=== PATIENT | female | born 1940 | race Caucasian/White ===

== ENCOUNTER → 2018-02-27 11:34 | Outpatient (CLI) | payer MEDICARE, BC, SELFPAY ==
--- NOTE | 2018-02-27 | DI.MG.S_ITS ---
BILATERAL DIGITAL SCREENING MAMMOGRAM 3D/2D WITH CAD: 02/27/2018 CLINICAL: Routine screening. Comparison is made to exams dated: 08/26/2016 mammogram, 07/11/2015 mammogram, and 07/08/2014 mammogram - [facility]. The tissue of both breasts is extremely dense, which lowers the sensitivity of mammography. Current study was also evaluated with a Computer Aided Detection (CAD) system. There are benign calcifications in both breasts. No significant masses, calcifications, or other findings are seen in either breast. There has been no significant interval change. IMPRESSION: BENIGN There is no mammographic evidence of malignancy. A 1 year screening mammogram is recommended. This exam was interpreted at Station ID: [id number]. NOTE: For mammograms, a report in lay terms will be sent to the patient. Approximately 15% of breast malignancies will not be visualized mammographically. In the management of a palpable breast mass, a negative mammogram must not discourage biopsy of a clinically suspicious lesion. Electronically Signed By: Marques whiting/pro:02/28/2018 08:28:03 letter sent: Normal Exam ACR BI-RADS Category 2: Benign Finding(s) 3342F
== END ==
PROVIDERS: PCP Internal Medicine; Visit Provider Internal Medicine
DX: Z12.31 Encounter for screening mammogram for malignant neoplasm of breast (principal)
CPT/HCPCS: 77063; 77067

== ENCOUNTER → 2019-01-01 08:40 | Outpatient (CLI) | payer MEDICARE, BC, SELFPAY ==
[2019-01-01 10:44] LABS: Blood Urea Nitrogen 22 mg/dL (7-17); Calcium 9.2 mg/dL (8.4-10.2); Carbon Dioxide 27 mmol/L (22-32); Chloride 104 mmol/L (98-107); Cholesterol 152 mg/dL (140-199); Estimated Glomerular Filt Rate 53.8 mL/min (>60); Glucose 88 mg/dL (80-110); HDL Cholesterol 66 mg/dL (40-60); HEMOLYSIS < 15 (0-50); LDL Cholesterol Calculated 73 mg/dL (<100); Potassium 4.4 mmol/L (3.4-5.1); Sodium 140 mmol/L (137-145); Triglycerides 64 mg/dL (35-150)
== END ==
PROVIDERS: PCP Family Medicine; Visit Provider Family Medicine
DX: E03.9 Hypothyroidism, unspecified (principal); E78.2 Mixed hyperlipidemia
CPT/HCPCS: 36415; 80048; 80061; 84443

== ENCOUNTER → 2019-04-03 15:43 | Outpatient (CLI) | payer MEDICARE, BC, SELFPAY ==
--- NOTE | 2019-04-03 | DI.MG.S_ITS ---
BILATERAL DIGITAL SCREENING MAMMOGRAM 3D/2D WITH CAD: 04/03/2019 CLINICAL: Routine screening. Comparison is made to exams dated: 02/27/2018 mammogram - [facility], 08/26/2016 mammogram, 07/11/2015 mammogram, 07/08/2014 mammogram - [facility], and 01/10/2012 mammogram - [facility]. The tissue of both breasts is heterogeneously dense. This may lower the sensitivity of mammography. Current study was also evaluated with a Computer Aided Detection (CAD) system. No significant masses, calcifications, or other findings are seen in either breast. There has been no significant interval change. IMPRESSION: NEGATIVE There is no mammographic evidence of malignancy. A 1 year screening mammogram is recommended. This exam was interpreted at Station ID: [id number]. NOTE: For mammograms, a report in lay terms will be sent to the patient. Approximately 15% of breast malignancies will not be visualized mammographically. In the management of a palpable breast mass, a negative mammogram must not discourage biopsy of a clinically suspicious lesion. Electronically Signed By: Terrell painting/pro:04/03/2019 19:18:31 letter sent: Normal Exam ACR BI-RADS Category 1: Negative 3341F
== END ==
PROVIDERS: PCP Family Medicine; Visit Provider Family Medicine
DX: Z12.31 Encounter for screening mammogram for malignant neoplasm of breast (principal)
CPT/HCPCS: 77063; 77067

== ENCOUNTER → 2019-05-15 10:37 | Outpatient (CLI) | payer MEDICARE, BC, SELFPAY ==
[2019-05-15 12:04] LABS: BUN Creatinine Ratio 23.3 (6-22); Blood Urea Nitrogen 21 mg/dL (7-17); Calcium 9.3 mg/dL (8.4-10.2); Carbon Dioxide 26 mmol/L (22-32); Chloride 104 mmol/L (98-107); Cholesterol 196 mg/dL (140-199); Estimated Glomerular Filt Rate > 60.0 mL/min (>60); Glucose 89 mg/dL (80-110); HDL Cholesterol 61 mg/dL (40-60); HEMOLYSIS < 15 (0-50); LDL Cholesterol Calculated 115 mg/dL (<100); Potassium 4.4 mmol/L (3.4-5.1); Sodium 139 mmol/L (137-145); Triglycerides 102 mg/dL (35-150)
== END ==
PROVIDERS: PCP Family Medicine; Visit Provider Family Medicine
DX: E78.2 Mixed hyperlipidemia (principal)
CPT/HCPCS: 36415; 80048; 80061

== ENCOUNTER → 2019-10-19 13:55 | Outpatient (CLI) | payer MEDICARE, BC, SELFPAY ==
--- NOTE | 2019-10-19 13:59 | DI.US.S_ITS ---
PROCEDURE: US ABDOMEN COMPLETE INDICATIONS: PAIN TECHNIQUE: Real-time scanning was performed of the abdominal and retroperitoneal organs, with image documentation. COMPARISON: [facility], CT, ABDOMEN/PELVIS WITH CONTRAST, 04/15/2009, 9:12. FINDINGS: Liver: Liver is normal in size and homogeneous in echotexture. Gallbladder: The gallbladder is sludge-filled, with several tiny nonobstructing stones. The gallbladder wall is not thickened, measuring 3 mm or less. No specific pericholecystic fluid is seen. The sonographic Langford sign is negative. Biliary ducts: Intrahepatic bile ducts are non-dilated. Extrahepatic bile duct caliber measures 4 mm. Normal is 6-7 mm or less in diameter, or 10 mm or less post-cholecystectomy. Pancreas: Visualized portions of the pancreas are sonographically normal. Spleen: Spleen is normal in size. Several hyperechoic masses are seen within the spleen. Kidneys: Kidneys are normal in size and echotexture. Right kidney measures 10.4 cm long; left kidney measures 9.3 cm long. No hydronephrosis or nephrolithiasis. No solid masses. The renal cortex measures within normal limits for thickness. Several simple appearing bilateral renal cysts are seen. The largest is seen on the left superiorly that measures up to 2.2 cm. Aorta: Visualized aorta is normal in caliber at less than 3 cm. Iliacs: Proximal common iliac arteries are normal in caliber at less than 2.5 cm. IVC: Intrahepatic inferior vena cava is patent. Miscellaneous: No free abdominal fluid. IMPRESSION: Sludge and tiny gallstones are seen within the gallbladder, without additional sonographic signs of cholecystitis. Numerous echogenic masses can be seen within the spleen, with the largest measuring up to 1.5 cm. Differential diagnosis includes splenic hemangiomas. Less likely would be metastatic disease. As clinically appropriate, please consider a followup abdominal CT, performed with IV contrast. Several simple appearing bilateral renal cysts are seen. Dictated by: Dontae Krishnan M.D. on 10/19/2019 at 15:21 Approved by: Dontae Krishnan M.D. on 10/19/2019 at 15:23
[2019-10-19 14:26] LABS: Add Manual Diff / Slide Review NO; Basophils Absolute Auto 0 /uL (0-100); Basophils Percent Auto 0.3 % (0-2); Eosinophils Absolute Auto 0 /uL (0-450); Eosinophils Percent Auto 0.5 % (2-4); Lymphocytes Absolute Auto 1500 /uL (1100-4500); Lymphocytes Percent Auto 14.9 % (25-40); Mean Corpuscular HGB Conc 35.2 % (30-36); Mean Corpuscular Hemoglobin 32.4 PG (26-34); Mean Corpuscular Volume 92.2 fL (80-100); Monocytes Absolute Auto 700 /uL (0-900); Monocytes Percent Auto 6.7 % (3-14); Neutrophils Absolute Auto 7600 /uL (1500-7000); Neutrophils Percent Auto 77.6 % (50-75); Platelet Count 164 X10^3/uL (150-400); Red Blood Cell Count 4.01 X10^6/uL (4.0-5.2); Red Cell Distribution Width 13.4 % (11.6-14.8); White Blood Cell Count 9.8 X10^3/uL (4.5-11.0)
[2019-10-19 14:41] LABS: Alanine Aminotransferase 14 IU/L (<35); Albumin 4.3 g/dL (3.5-5.0); Albumin Globulin Ratio 1.3 (1.0-2.8); Alkaline Phosphatase 92 U/L (38-126); Amylase 53 U/L (30-110); Aspartate Aminotransferase 22 IU/L (14-36); Bilirubin Total 1.1 mg/dL (0.2-1.3); Blood Urea Nitrogen 15 mg/dL (7-17); Calcium 9.3 mg/dL (8.4-10.2); Carbon Dioxide 27 mmol/L (22-32); Chloride 103 mmol/L (98-107); Cholesterol 172 mg/dL (140-199); Estimated Glomerular Filt Rate 53.6 mL/min (>60); Globulin 3.3 g/dL (1.7-4.1); Glucose 102 mg/dL (80-110); HDL Cholesterol 54 mg/dL (40-60); HEMOLYSIS < 15 (0-50); LDL Cholesterol Calculated 103 mg/dL (<100); Lipase 46 U/L (23-300); Sodium 140 mmol/L (137-145); Total Protein 7.6 g/dL (6.3-8.2); Triglycerides 74 mg/dL (35-150)
== END ==
PROVIDERS: PCP Family Medicine; Referring Provider Family Medicine; Visit Provider Family Medicine
DX: R10.9 Unspecified abdominal pain (principal); E78.5 Hyperlipidemia, unspecified; K82.8 Other specified diseases of gallbladder; N28.1 Cyst of kidney, acquired; R16.1 Splenomegaly, not elsewhere classified
CPT/HCPCS: 36415; 76700; 80053; 80061; 82150; 83690; 85025

== ENCOUNTER → 2019-10-25 12:04 | Outpatient (CLI) | payer MEDICARE, BC, SELFPAY ==
--- NOTE | 2019-10-25 13:04 | DI.CT.S_ITS ---
PROCEDURE: CT ABDOMEN PELVIS W CON INDICATIONS: Adnormal gallballder US, showed sluge/stones TECHNIQUE: After the administration of oral and intravenous contrast, 5 mm thick sections acquired from the diaphragms to the symphysis. 5 mm thick coronal and sagittal reformats were performed. For radiation dose reduction, the following was used: automated exposure control, adjustment of mA and/or kV according to patient size. COMPARISON: [facility], CT, ABDOMEN/PELVIS WITH CONTRAST, 04/15/2009, 9:12. [facility], US, US ABDOMEN COMPLETE, 10/19/2019, 14:41. FINDINGS: Image quality: Excellent. ABDOMEN: Lung bases: Lung bases are clear. Small calcified granuloma is noted in the right middle lobe. Heart size is normal. Solid organs: A calcific density in the liver is probably an old granuloma. Liver is normal in size and enhancement. Gallbladder is normal. Biliary system is non-dilated. Pancreas enhances normally. Spleen contains multiple hypoenhancing nodules, many were visualized on 04/15/2009. A 1.1 x 1.8 cm right adrenal nodule is noted, unchanged in size since 04/15/2009. Kidneys are normal in size and enhancement, without hydronephrosis. There are simple appearing renal cysts bilaterally. No renal stones. Peritoneum and bowel: Stomach, small bowel, and colon loops are normal in caliber and wall thickness. There are numerous colonic diverticula the sigmoid colon. The sigmoid colon appears mildly thickened. No free fluid or air. Nodes and vessels: No retroperitoneal or mesenteric adenopathy. Aorta and inferior vena cava are normal in caliber. Miscellaneous: No ventral hernias. PELVIS: Genitourinary: Bladder wall thickness is normal. Uterus and ovaries are unremarkable. No free fluid in pelvis. Miscellaneous: No inguinal hernias or adenopathy. Bones: No suspicious bony lesions. No vertebral body compression fractures. Mild scoliosis. Degenerative changes noted in thoracic and lumbar spine. IMPRESSION: 1. Multiple hypoenhancing nodules in spleen; many were visualized on 04/15/2009. On the comparison ultrasound, these nodules are hyperechoic suggesting small hemangiomas. Less likely diagnostic considerations include diagnoses include sarcoidosis and metastatic disease. 2. A 1.1 x 1.8 cm right adrenal nodule, stable since 04/15/2009, likely a benign adrenal adenoma. 3. Diverticulosis. There is mild thickening of the sigmoid colon suggesting mild diverticulitis. Recommend clinical correlation. 4. Dictated by: Yas Neff M.D. on 10/25/2019 at 15:57 Approved by: Yas Neff M.D. on 10/25/2019 at 18:19
== END ==
PROVIDERS: PCP Family Medicine; Referring Provider Family Medicine; Visit Provider Family Medicine
DX: R93.5 Abnormal findings on diagnostic imaging of other abdominal regions, including retroperitoneum (principal); D73.89 Other diseases of spleen; E27.9 Disorder of adrenal gland, unspecified; N28.1 Cyst of kidney, acquired; K57.30 Diverticulosis of large intestine without perforation or abscess without bleeding
CPT/HCPCS: 74177

== ENCOUNTER → 2020-04-04 12:14 | Outpatient (CLI) | payer MEDICARE, BC, SELFPAY ==
--- NOTE | 2020-04-04 12:18 | DI.RAD.S_ITS ---
PROCEDURE: XR HAND LT MIN 3V INDICATIONS: Pain TECHNIQUE: 3 views of the hand(s) acquired. COMPARISON: None. FINDINGS: Bones: No fractures or dislocations. Carpal bones are normally aligned. No suspicious bony lesions. Possible old fracture involving the 5th middle phalanx distally, versus degenerative change at that site Soft tissues: No suspicious soft tissue calcifications. IMPRESSION: No trauma found. 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 Dictated by: Iban Chowdhury M.D. on 04/04/2020 at 14:17 Approved by: Iban Chowdhury M.D. on 04/04/2020 at 14:18
[2020-04-04 13:39] LABS: Thyroid Stimulating Hormone 1.58 uIU/mL (0.47-4.68)
== END ==
PROVIDERS: PCP Family Medicine; Referring Provider Family Medicine; Visit Provider Family Medicine
DX: M79.642 Pain in left hand (principal); M19.042 Primary osteoarthritis, left hand; E03.9 Hypothyroidism, unspecified
CPT/HCPCS: 36415; 73130; 84443

== ENCOUNTER → 2020-05-29 11:07 | Outpatient (CLI) | payer MEDICARE, BC, SELFPAY ==
--- NOTE | 2020-05-29 11:10 | DI.MG.S_ITS ---
BILATERAL DIGITAL SCREENING MAMMOGRAM 3D/2D WITH CAD: 05/29/2020 CLINICAL: Routine screening. Comparison is made to exams dated: 04/03/2019 mammogram, 02/27/2018 mammogram - [facility], and 08/26/2016 mammogram - [facility]. The tissue of both breasts is heterogeneously dense. This may lower the sensitivity of mammography. Current study was also evaluated with a Computer Aided Detection (CAD) system. There are grouped fine punctate calcifications in the left breast at 6 o'clock posterior depth. There also is irregular equal density architectural distortion with an indistinct margin in the left breast at 12 o'clock middle depth. No other significant masses, calcifications, or other findings are seen in either breast. IMPRESSION: INCOMPLETE: NEEDS ADDITIONAL IMAGING EVALUATION The grouped fine punctate calcifications in the left breast at 6 o'clock posterior depth are indeterminate. Mediolateral, spot magnification, and additional views are recommended. The irregular equal density architectural distortion in the left breast at 12 o'clock middle depth is indeterminate. Mediolateral and spot compression views as well as additional views with possible ultrasound are recommended. This exam was interpreted at Station ID: [id number]. NOTE: For mammograms, a report in lay terms will be sent to the patient. Approximately 15% of breast malignancies will not be visualized mammographically. In the management of a palpable breast mass, a negative mammogram must not discourage biopsy of a clinically suspicious lesion. Electronically Signed By: Marques whiting/pro:05/29/2020 17:28:05 letter sent: Additional Imaging Needed ACR BI-RADS Category 0: Incomplete 3340F
== END ==
PROVIDERS: PCP Family Medicine; Referring Provider Family Medicine; Visit Provider Family Medicine
DX: Z12.31 Encounter for screening mammogram for malignant neoplasm of breast (principal)
CPT/HCPCS: 77063; 77067

== ENCOUNTER → 2020-06-26 08:39 | Outpatient (CLI) | payer MEDICARE, BC, SELFPAY ==
--- NOTE | 2020-06-26 08:41 | DI.MG.S_ITS ---
UNILATERAL LEFT DIGITAL DIAGNOSTIC MAMMOGRAM 3D/2D WITH ADDITIONAL VIEWS: 06/26/2020 CLINICAL: Additional evaluation requested from prior study. Comparison is made to exams dated: 04/03/2019 mammogram, 02/27/2018 mammogram - [facility], and 08/26/2016 mammogram - [facility]. The tissue of left breast is heterogeneously dense. This may lower the sensitivity of mammography. There is a new irregular equal density architectural distortion with an indistinct margin in the left breast at 12 o'clock posterior depth. There also are grouped fine punctate calcifications in the left breast at 6 o'clock posterior depth. These are increased in number. No other significant masses or calcifications are seen in the breast. IMPRESSION: INCOMPLETE: NEEDS ADDITIONAL IMAGING EVALUATION The new irregular equal density architectural distortion in the left breast at 12 o'clock posterior depth is indeterminate. An ultrasound is recommended. The grouped fine punctate calcifications in the left breast at 6 o'clock posterior depth are at a low suspicion for malignancy. A stereotactic biopsy is recommended. This exam was interpreted at Station ID: [id number]. NOTE: For mammograms, a report in lay terms will be sent to the patient. Approximately 15% of breast malignancies will not be visualized mammographically. In the management of a palpable breast mass, a negative mammogram must not discourage biopsy of a clinically suspicious lesion. Electronically Signed By: Marques whiting/pro:06/26/2020 09:55:57 ACR BI-RADS Category 0: Incomplete 3340F
--- NOTE | 2020-06-26 08:41 | DI.US.S_ITS ---
LIMITED ULTRASOUND OF LEFT BREAST AND AXILLA: 06/26/2020 CLINICAL: Patient returns today to evaluate an architectural distortion in the left breast. Patient returns today to evaluate asymmetry in left breast. Comparison is made to exams dated: 06/26/2020 mammogram, 05/29/2020 mammogram, and 04/03/2019 mammogram - [facility]. Color flow and real-time ultrasound of the left breast 11-12 o'clock, and axilla regions were performed on the areas of interest. There is a 0.8 cm x 0.7 cm irregular mass with an indistinct margin in the left breast at 12 o'clock middle depth 4 cm from the nipple. This irregular mass is hypoechoic with posterior acoustic shadowing. This likely correlates with architectural distortion on mammography. Color flow imaging demonstrates that there is no increase in vascularity. There also is a 0.6 cm x 0.4 cm x 0.5 cm oval mass with a circumscribed margin in the left breast at 12 o'clock anterior depth. This oval mass is hypoechoic with a well-defined boundary and internal echoes. No significant abnormalities were seen sonographically in the left axilla. IMPRESSION: HIGHLY SUGGESTIVE OF MALIGNANCY The 0.8 cm x 0.7 cm irregular mass in the left breast at 12 o'clock middle depth is highly suggestive of malignancy. An ultrasound guided biopsy is recommended. The 0.6 cm x 0.4 cm x 0.5 cm oval mass in the left breast at 12 o'clock anterior depth is probably benign. Recommend followup in 6 months to demonstrate stability. Stereotactic guided biopsy is recommended of calcifications seen on mammography. The findings were discussed with the patient at the conclusion of the study by Dr. Solomon. This exam was interpreted at Station ID: [id number]. Electronically Signed By: Marques Ward M.D. ddp/:06/26/2020 12:45:52 letter sent: Biopsy Required Ultrasound BI-RADS: 5 Highly suggestive of malignancy
== END ==
PROVIDERS: PCP Family Medicine; Referring Provider Family Medicine; Visit Provider Family Medicine
DX: R92.8 Other abnormal and inconclusive findings on diagnostic imaging of breast (principal); R92.1 Mammographic calcification found on diagnostic imaging of breast; N63.25 Unspecified lump in the left breast, overlapping quadrants
CPT/HCPCS: 76642; 77065; G0279

== ENCOUNTER → 2020-10-17 11:57 | Outpatient (CLI) | payer MEDICARE, BC, SELFPAY ==
[2020-10-17 13:31] LABS: Alanine Aminotransferase 20 IU/L (<35); Albumin 4.1 g/dL (3.5-5.0); Albumin Globulin Ratio 1.5 (1.0-2.8); Alkaline Phosphatase 74 U/L (38-126); Aspartate Aminotransferase 27 IU/L (14-36); BUN Creatinine Ratio 20.5 (6-22); Bilirubin Total 0.5 mg/dL (0.2-1.3); Blood Urea Nitrogen 18 mg/dL (7-17); Calcium 9.5 mg/dL (8.4-10.2); Carbon Dioxide 28 mmol/L (22-32); Chloride 106 mmol/L (98-107); Estimated Glomerular Filt Rate > 60.0 mL/min (>60); Globulin 2.7 g/dL (1.7-4.1); Glucose 81 mg/dL (80-110); HEMOLYSIS < 15 (0-50); Potassium 4.4 mmol/L (3.4-5.1); Sodium 139 mmol/L (137-145); Total Protein 6.8 g/dL (6.3-8.2)
[2020-10-17 13:46] LABS: Free T4, Direct Thyroxine 1.28 ng/dL (0.78-2.19)
[2020-10-17 14:00] LABS: Thyroid Stimulating Hormone 0.468 uIU/mL (0.47-4.68)
== END ==
PROVIDERS: PCP Family Medicine; Referring Provider Family Medicine; Visit Provider Family Medicine
DX: E03.9 Hypothyroidism, unspecified (principal); I10 Essential (primary) hypertension
CPT/HCPCS: 36415; 80053; 84439; 84443

== ENCOUNTER → 2021-04-14 10:10 | Outpatient (CLI) | payer MEDICARE, BC, SELFPAY ==
[2021-04-14 12:22] LABS: Free T4, Direct Thyroxine 1.07 ng/dL (0.78-2.19)
[2021-04-14 12:36] LABS: Thyroid Stimulating Hormone 0.998 uIU/mL (0.47-4.68)
== END ==
PROVIDERS: PCP Family Medicine; Referring Provider Family Medicine; Visit Provider Family Medicine
DX: E03.9 Hypothyroidism, unspecified (principal); I10 Essential (primary) hypertension
CPT/HCPCS: 36415; 84439; 84443

== ENCOUNTER → 2021-06-24 15:44 | Outpatient (CLI) | payer MEDICARE, BC, SELFPAY ==
--- NOTE | 2021-06-24 15:46 | DI.RAD.S_ITS ---
4PROCEDURE: XR FOOT RT MIN 3V INDICATIONS: Progressive right midfoot pain TECHNIQUE: 3 views of the foot were acquired. COMPARISON: [facility], , FOOT 3V RIGHT, 05/07/2009, 11:38. FINDINGS: Bones: No fractures or dislocations. There is moderate to severe degeneration at the 1st metatarsophalangeal joint which appears progressed compared to the prior study. There is also a moderate hallux valgus which appears increased compared to the prior study. There is mild degeneration of the interphalangeal joints. No suspicious bony lesions. Soft tissues: No suspicious soft tissue calcifications. IMPRESSION: 1. 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 Dictated by: Marques Ward M.D. on 06/24/2021 at 17:47 Approved by: Marques Ward M.D. on 06/24/2021 at 17:49
== END ==
PROVIDERS: PCP Family Medicine; Referring Provider Family Medicine; Visit Provider Family Medicine
DX: M21.611 Bunion of right foot (principal); M19.071 Primary osteoarthritis, right ankle and foot; M20.11 Hallux valgus (acquired), right foot; I49.3 Ventricular premature depolarization
CPT/HCPCS: 73630; 93005

== ENCOUNTER → 2021-10-12 13:57 | Outpatient (CLI) | payer MEDICARE, BC, SELFPAY ==
--- NOTE | 2021-10-12 14:01 | DI.MG.S_ITS ---
BILATERAL DIGITAL DIAGNOSTIC MAMMOGRAM 3D/2D SHORT-TERM FOLLOW-UP: 10/12/2021 CLINICAL: Short term follow up of the left breast, due for bilateral imaging. Comparison is made to exams dated: 01/06/2021 mammogram, 07/08/2020 mammogram - [facility], 06/26/2020 [facility], 07/08/2020 stereotactic biopsy - [facility], 05/29/2020 [facility], and 01/06/2021 ultrasound - [facility]. The tissue of both breasts is heterogeneously dense. This may lower the sensitivity of mammography. There is irregular equal density architectural distortion with an indistinct margin in the left breast at 12 o'clock middle depth. This is less prominent. There is a biopsy clip associated with the architectural distortion. There also are grouped fine punctate calcifications in the left breast central to the nipple posterior depth. These are not significantly changed. No other significant masses, calcifications, or other findings are seen in either breast. IMPRESSION: INCOMPLETE: NEEDS ADDITIONAL IMAGING EVALUATION The irregular equal density architectural distortion in the left breast at 12 o'clock middle depth is indeterminate. An ultrasound is recommended. The grouped fine punctate calcifications in the left breast central to the nipple posterior depth are probably benign. A follow-up mammogram in 6 months is recommended. This exam was interpreted at Station ID: [id number]. NOTE: For mammograms, a report in lay terms will be sent to the patient. Approximately 15% of breast malignancies will not be visualized mammographically. In the management of a palpable breast mass, a negative mammogram must not discourage biopsy of a clinically suspicious lesion. Electronically Signed By: Miki bingham/pro:10/12/2021 15:56:18 ACR BI-RADS Category 0: Incomplete 3340F
--- NOTE | 2021-10-12 14:01 | DI.US.S_ITS ---
LIMITED ULTRASOUND OF LEFT BREAST: 10/12/2021 CLINICAL: Patient returns today to evaluate two focal asymmetries in the left breast. Comparison is made to exams dated: 10/12/2021 mammogram - [facility], 01/06/2021 ultrasound, 01/06/2021 mammogram, 07/08/2020 ultrasound biopsy, 07/08/2020 stereotactic biopsy - [facility], and 06/26/2020 ultrasound - [facility]. Color flow ultrasound of the left breast 12 o'clock region was performed. Baez scale images of the real-time examination were reviewed. There is a stable 0.5 cm x 0.4 cm x 0.3 cm oval mass with a circumscribed margin in the left breast at 12 o'clock anterior depth 2 cm from the nipple. This oval mass is hypoechoic. Color flow imaging demonstrates that there is no vascularity present. There also is an irregular mass with an indistinct margin in the left breast at 12 o'clock middle depth 4 cm from the nipple. This abnormality is less prominent. There is an associated biopsy clip. IMPRESSION: PROBABLY BENIGN The stable 0.5 cm x 0.4 cm x 0.3 cm oval mass in the left breast at 12 o'clock anterior depth resembles a lymph node and is probably benign. A follow-up ultrasound in 6 months is recommended. The irregular mass in the left breast at 12 o'clock middle depth is probably benign. Follow-up mammogram and ultrasound in 6 months is recommended. A follow-up left mammogram and an ultrasound in 6 months is recommended to demonstrate stability. This exam was interpreted at Station ID: [id number]. Electronically Signed By: Miki bingham/pro:10/12/2021 15:58:37 letter sent: Followup Recommended Ultrasound BI-RADS: 3 Probably benign
== END ==
PROVIDERS: PCP Family Medicine; Referring Provider Family Medicine; Visit Provider Family Medicine
DX: R92.1 Mammographic calcification found on diagnostic imaging of breast (principal); N63.25 Unspecified lump in the left breast, overlapping quadrants
CPT/HCPCS: 76642; 77066; G0279

== ENCOUNTER → 2021-12-31 08:42 | Outpatient (CLI) | payer MEDICARE, BC, SELFPAY ==
[2021-12-31 09:16] LABS: Add Manual Diff / Slide Review NO; Basophils Absolute Auto 0 /uL (0-100); Basophils Percent Auto 0.5 % (0-2); Eosinophils Absolute Auto 200 /uL (0-450); Eosinophils Percent Auto 4.1 % (2-4); Hematocrit 38.8 % (36-46); Hemoglobin 13.6 g/dL (12.0-16.0); Lymphocytes Absolute Auto 1300 /uL (1100-4500); Lymphocytes Percent Auto 27.5 % (25-40); Mean Corpuscular HGB Conc 35.1 % (30-36); Mean Corpuscular Hemoglobin 31.8 PG (26-34); Mean Corpuscular Volume 90.6 fL (80-100); Monocytes Absolute Auto 500 /uL (0-900); Neutrophils Absolute Auto 2700 /uL (1500-7000); Neutrophils Percent Auto 57.9 % (50-75); Platelet Count 158 X10^3/uL (150-400); Red Blood Cell Count 4.28 X10^6/uL (4.0-5.2); Red Cell Distribution Width 13.6 % (11.6-14.8); White Blood Cell Count 4.6 X10^3/uL (4.5-11.0)
[2021-12-31 10:35] LABS: Alanine Aminotransferase 17 IU/L (<35); Albumin 4.2 g/dL (3.5-5.0); Albumin Globulin Ratio 1.6 (1.0-2.8); Alkaline Phosphatase 64 U/L (38-126); Aspartate Aminotransferase 28 IU/L (14-36); BUN Creatinine Ratio 22.4 (6-22); Bilirubin Total 0.8 mg/dL (0.2-1.3); Blood Urea Nitrogen 22 mg/dL (7-17); Calcium 8.9 mg/dL (8.4-10.2); Carbon Dioxide 28 mmol/L (22-32); Chloride 104 mmol/L (98-107); Cholesterol 219 mg/dL (140-199); Estimated Glomerular Filt Rate 58 mL/min (>60); Globulin 2.6 g/dL (1.7-4.1); Glucose 89 mg/dL (80-110); HDL Cholesterol 69 mg/dL (40-60); HEMOLYSIS < 15 (0-50); LDL Cholesterol Calculated 132 mg/dL (<100); Magnesium 1.9 mg/dL (1.6-2.3); Potassium 4.2 mmol/L (3.4-5.1); Sodium 139 mmol/L (137-145); Total Protein 6.8 g/dL (6.3-8.2); Triglycerides 91 mg/dL (35-150)
[2021-12-31 11:05] LABS: Thyroid Stimulating Hormone 1.81 uIU/mL (0.47-4.68)
== END ==
PROVIDERS: PCP Family Medicine; Referring Provider Internal Medicine Cardiovascular Disease; Visit Provider Internal Medicine Cardiovascular Disease
DX: I10 Essential (primary) hypertension (principal); I49.9 Cardiac arrhythmia, unspecified
CPT/HCPCS: 36415; 80053; 80061; 83735; 84443; 85025

== ENCOUNTER → 2022-06-04 09:31 | Outpatient (CLI) | payer MEDICARE, BC, SELFPAY ==
[2022-06-04 12:18] LABS: Add Manual Diff / Slide Review NO; Basophils Absolute Auto 0 /uL (0-100); Basophils Percent Auto 0.7 % (0-2); Eosinophils Absolute Auto 100 /uL (0-450); Eosinophils Percent Auto 3.2 % (2-4); Hematocrit 36.8 % (36-46); Hemoglobin 13.1 g/dL (12.0-16.0); Lymphocytes Absolute Auto 1500 /uL (1100-4500); Lymphocytes Percent Auto 32.6 % (25-40); Mean Corpuscular HGB Conc 35.4 % (30-36); Mean Corpuscular Hemoglobin 32.7 PG (26-34); Mean Corpuscular Volume 92.3 fL (80-100); Monocytes Absolute Auto 400 /uL (0-900); Monocytes Percent Auto 9.5 % (3-14); Neutrophils Absolute Auto 2500 /uL (1500-7000); Platelet Count 158 X10^3/uL (150-400); Red Blood Cell Count 3.99 X10^6/uL (4.0-5.2); Red Cell Distribution Width 13.4 % (11.6-14.8); White Blood Cell Count 4.7 X10^3/uL (4.5-11.0)
[2022-06-04 12:46] LABS: Alanine Aminotransferase 12 IU/L (<35); Albumin 3.8 g/dL (3.5-5.0); Albumin Globulin Ratio 1.4 (1.0-2.8); Alkaline Phosphatase 61 U/L (38-126); Aspartate Aminotransferase 23 IU/L (14-36); BUN Creatinine Ratio 16.1 (6-22); Bilirubin Total 0.7 mg/dL (0.2-1.3); Blood Urea Nitrogen 14 mg/dL (7-17); Carbon Dioxide 28 mmol/L (22-32); Chloride 106 mmol/L (98-107); Cholesterol 143 mg/dL (140-199); Estimated Glomerular Filt Rate > 60 mL/min (>60); Globulin 2.7 g/dL (1.7-4.1); Glucose 85 mg/dL (80-110); HDL Cholesterol 59 mg/dL (40-60); HEMOLYSIS < 15 (0-50); LDL Cholesterol Calculated 68 mg/dL (<100); Potassium 4.4 mmol/L (3.4-5.1); Sodium 142 mmol/L (137-145); Total Protein 6.5 g/dL (6.3-8.2); Triglycerides 81 mg/dL (35-150)
[2022-06-04 12:57] LABS: Free T4, Direct Thyroxine 1.17 ng/dL (0.78-2.19)
[2022-06-04 13:11] LABS: Thyroid Stimulating Hormone 1.03 uIU/mL (0.47-4.68)
== END ==
PROVIDERS: PCP Family Medicine; Referring Provider Nurse Practitioner; Visit Provider Nurse Practitioner
DX: E03.9 Hypothyroidism, unspecified (principal); I10 Essential (primary) hypertension; E78.5 Hyperlipidemia, unspecified
CPT/HCPCS: 36415; 80053; 80061; 84439; 84443; 85025

== ENCOUNTER → 2022-09-30 11:49 | Outpatient (CLI) | payer MEDICARE, BC, SELFPAY ==
--- NOTE | 2022-09-30 11:51 | DI.MG.S_ITS ---
BILATERAL DIGITAL DIAGNOSTIC MAMMOGRAM 3D/2D SHORT-TERM FOLLOW-UP: 09/30/2022 CLINICAL: Short term follow up of the left breast, due for bilateral imaging. Comparison is made to exams dated: 10/12/2021 mammogram - [facility], 01/06/2021 mammogram, 07/08/2020 mammogram - [facility], 06/26/2020 mammogram, and 05/29/2020 mammogram - [facility]. Both breasts are heterogeneously dense, which may obscure small masses (category c / 51-75% glandular tissue). There is a stable irregular equal density architectural distortion with an indistinct margin in the left breast at 12 o'clock middle depth. There is a biopsy clip associated with the architectural distortion. There also are grouped fine punctate calcifications in the left breast central to the nipple posterior depth. These are not significantly changed. No other significant masses, calcifications, or other findings are seen in either breast. IMPRESSION: PROBABLY BENIGN The stable irregular equal density architectural distortion in the left breast at 12 o'clock middle depth is probably benign. A follow-up mammogram in 6 months is recommended. The grouped fine punctate calcifications in the left breast central to the nipple posterior depth are probably benign. A follow-up mammogram in 6 months is recommended. A follow-up mammogram in 6 months is recommended to demonstrate stability. Based on the Tyrer Cuzick model (a risk assessment model) the patient's lifetime risk is 0.9% and her 10 year risk is 0.0%. According to the ACR, ACS, and NCCN guidelines, an annual breast MRI exam along with mammogram is recommended if the patient's lifetime risk is 20% or greater. This exam was interpreted at Station ID: [id number]. NOTE: For mammograms, a report in lay terms will be sent to the patient. Approximately 15% of breast malignancies will not be visualized mammographically. In the management of a palpable breast mass, a negative mammogram must not discourage biopsy of a clinically suspicious lesion. Electronically Signed By: Adama Solomon M.D., jr/pro:09/30/2022 14:09:00 letter sent: Followup Recommended ACR BI-RADS Category 3: Probably benign [id number]
== END ==
PROVIDERS: PCP Family Medicine; Referring Provider Family Medicine; Visit Provider Family Medicine
DX: R92.8 Other abnormal and inconclusive findings on diagnostic imaging of breast (principal); R92.1 Mammographic calcification found on diagnostic imaging of breast
CPT/HCPCS: 77066; G0279

== ENCOUNTER → 2023-10-04 13:26 | Outpatient (CLI) | payer MEDICARE, BC, SELFPAY ==
[2023-10-04 14:18] LABS: Add Manual Diff / Slide Review NO; Basophils Absolute Auto 0 /uL (0-100); Basophils Percent Auto 0.6 % (0-2); Eosinophils Absolute Auto 100 /uL (0-450); Eosinophils Percent Auto 2.3 % (2-4); Hematocrit 40.9 % (36-46); Hemoglobin 14.2 g/dL (12.0-16.0); Lymphocytes Absolute Auto 1600 /uL (1100-4500); Lymphocytes Percent Auto 26.1 % (25-40); Mean Corpuscular HGB Conc 34.6 % (30-36); Mean Corpuscular Hemoglobin 32.7 PG (26-34); Mean Corpuscular Volume 94.4 fL (80-100); Monocytes Absolute Auto 600 /uL (0-900); Monocytes Percent Auto 9.7 % (3-14); Neutrophils Absolute Auto 3800 /uL (1500-7000); Neutrophils Percent Auto 61.3 % (50-75); Platelet Count 160 X10^3/uL (150-400); Red Blood Cell Count 4.33 X10^6/uL (4.0-5.2); White Blood Cell Count 6.1 X10^3/uL (4.5-11.0)
[2023-10-04 14:43] LABS: Alanine Aminotransferase 21 IU/L (<35); Albumin 4.3 g/dL (3.5-5.0); Albumin Globulin Ratio 1.4 (1.0-2.8); Alkaline Phosphatase 70 U/L (38-126); Aspartate Aminotransferase 29 IU/L (14-36); BUN Creatinine Ratio 25.5 (6-22); Bilirubin Total 0.9 mg/dL (0.2-1.3); Blood Urea Nitrogen 24 mg/dL (7-17); Calcium 9.7 mg/dL (8.4-10.2); Carbon Dioxide 26 mmol/L (22-32); Chloride 104 mmol/L (98-107); Cholesterol 161 mg/dL (140-199); Estimated Glomerular Filt Rate > 60 mL/min (>60); Globulin 3.1 g/dL (1.7-4.1); Glucose 103 mg/dL (80-110); HDL Cholesterol 67 mg/dL (40-60); HEMOLYSIS < 15 (0-50); LDL Cholesterol Calculated 79 mg/dL (<100); Potassium 4.4 mmol/L (3.4-5.1); Sodium 139 mmol/L (137-145); Total Protein 7.4 g/dL (6.3-8.2); Triglycerides 77 mg/dL (35-150)
[2023-10-04 15:00] LABS: Free T4, Direct Thyroxine 1.28 ng/dL (0.78-2.19)
[2023-10-04 15:15] LABS: Thyroid Stimulating Hormone 1.33 uIU/mL (0.47-4.68)
== END ==
PROVIDERS: PCP Family Medicine; Referring Provider Family Medicine; Visit Provider Family Medicine
DX: E78.2 Mixed hyperlipidemia (principal); E03.9 Hypothyroidism, unspecified; I10 Essential (primary) hypertension
CPT/HCPCS: 36415; 80053; 80061; 84439; 84443; 85025

== ENCOUNTER → 2024-02-07 12:09 | Outpatient (CLI) | payer MEDICARE, BC, SELFPAY ==
--- NOTE | 2024-02-07 | DI.ECHO.S_ITS ---
[facility] : : [address] : : [place] : : [id number] : : Phone: [phone] Echocardiogram Report + + :Name: SILVIA MARKS Study Date: 02/07/2024 Height: 67 in : :[facility] ReadingLocation: Weight: 179 lb : : Gender: Female BSA: 1.9 m2 : :: 1940 Age: 83 yrs BP: 155/94 mmHg: :Reason For Study: HYPERTENSION : :Ordering Physician: ARNOLDO, : :PATRICE Wisdom Performed By: Aviva Juarez : :Referring: PATRICE MCLAUGHLIN W : + + Interpretation Summary The left ventricle is normal in size and wall thickness. The left ventricular ejection fraction is normal. The ejection fraction is estimated to be 60-65%. No significant change in LVEF. The right ventricle is normal in size and function. There is moderate to severe tricuspid regurgitation. Compared to the prior echo exam, there has been no change in TR severity. The right ventricular systolic pressure is estimated to be at least 37 mmHg based on an estimated right atrial pressure of 3 mm Hg. Previously 41 mmHg. There is aortic root sclerosis/calcification. There is mild luminal irregularity and echogenicity in the abdominal aorta, suggestive of aortic atherosclerotic disease. Abdominal atherosclerosis and aortic root sclerosis seen on the previous echo as well. Procedure: A two-dimensional transthoracic echocardiogram with color flow and Doppler was performed. The study quality was technically adequate. There is no prior echocardiogram noted for this patient. The patient was in sinus rhythm with heart rates between 60-72 bpm during the exam. Left Ventricle: The left ventricle is normal in size and wall thickness. There is no thrombus. The ejection fraction is estimated to be 60-65%. The left ventricular ejection fraction is normal. There are no focal wall motion abnormalities. Diastolic parameters suggest a relaxation abnormality of the left ventricle, consistent with probable normal filling pressures. Right Ventricle: The right ventricle is normal in size and function. Atria: The left atrial size is normal. The right atrium is mildly dilated. There is no Doppler evidence for an interatrial shunt. Mitral Valve: There is mild mitral annular calcification. There is mild mitral regurgitation. Compared to the prior echo study, there has been no change in the severity of mitral regurgitation. Aortic Valve: The aortic valve is trileaflet. The aortic valve opens well. There is no aortic valve stenosis. There is trace aortic regurgitation. Compared to the prior echo study, there has been no change in the severity of aortic regurgitation. Tricuspid Valve: The tricuspid valve is normal. There is moderate to severe tricuspid regurgitation. The right ventricular systolic pressure is estimated to be at least 37 mmHg based on an estimated right atrial pressure of 3 mm Hg. Compared to the prior echo exam, there has been no change in TR severity. Pulmonic Valve: The pulmonic valve leaflets are thin and pliable; valve motion is normal. There is no pulmonic valvular regurgitation. Great Vessels: The aortic root is normal size. There is aortic root sclerosis/calcification. The ascending aorta could not be visualized. There is mild luminal irregularity and echogenicity in the abdominal aorta, suggestive of aortic atherosclerotic disease. The IVC is of normal diameter and collapses greater than 50% with a sniff. This suggests a low right atrial pressure of 3 mm Hg. Pericardium/ Pleura There is no pericardial effusion. There is no pleural effusion. MMode/2D Measurements & Calculations LVIDd: 4.0 cm LVOT diam: 2.0 cm LVIDs: 2.9 cm Ao root diam: 3.0 cm FS: 27.8 % Ao Arch Diam (Prox Trans): 2.2 cm IVSd: 0.80 cm LVPWd: 0.93 cm LV santos. diameter/BSA (cm/m^2): 2.1 LV sys. diameter/BSA (cm/m^2): 1.5 LA A2 area: 17.0 cm2 RA long axis: 5.5 cm LA A4 area: 17.1 cm2 RA area: 18.1 cm2 LA length (vol): 5.1 cm RA vol: 50.5 ml LA vol: 48.6 ml RA : 26.2 ml/m2 LA vol index: 25.2 ml/m2 IVC diam: 1.6 cm RVD1 (basal): 3.6 cm TAPSE: 2.0 cm Doppler Measurements & Calculations Ao V2 max: 111.8 cm/sec LVOT Max Jase: 83.3 cm/sec Ao V2 mean: 85.0 cm/sec LV V1 max P.8 mmHg Ao max P.0 mmHg LV V1 VTI: 19.0 cm Ao mean P.0 mmHg ANU(I,D): 2.0 cm2 Ao V2 VTI: 28.1 cm ANU(V,D): 2.2 cm2 sev ratio: 0.68 ANU indexed to BSA (cm^2/m^2): 1.1 MV E max jase: 64.3 cm/sec TR max jase: 289.9 cm/sec MV A max jase: 77.5 cm/sec TR max P.6 mmHg MV E/A: 0.83 PA V2 max: 78.1 cm/sec Med Peak E' Jase: 6.8 cm/sec PA V2 mean: 51.8 cm/sec E/E' med: 9.5 PA mean P.2 mmHg Lat Peak E' Jase: 7.3 cm/sec PA pr(Accel): 51.6 mmHg E/E' lat: 8.9 E/e' average: 9.2 MV dec time: 0.19 sec SV(LVOT): 57.1 ml Reading Physician:[id number] PM
== END ==
PROVIDERS: PCP Family Medicine; Referring Provider Nurse Practitioner; Visit Provider Nurse Practitioner
DX: I08.1 Rheumatic disorders of both mitral and tricuspid valves (principal); I10 Essential (primary) hypertension
CPT/HCPCS: 93306

== ENCOUNTER → 2024-02-24 12:29 | Outpatient (CLI) | payer MEDICARE, BC, SELFPAY ==
[2024-02-24 13:43] LABS: BUN Creatinine Ratio 23.5 (6-22); Blood Urea Nitrogen 23 mg/dL (7-17); Calcium 8.8 mg/dL (8.4-10.2); Carbon Dioxide 27 mmol/L (22-32); Chloride 109 mmol/L (98-107); Cholesterol 155 mg/dL (140-199); Estimated Glomerular Filt Rate 58 mL/min (>60); Glucose 104 mg/dL (80-110); HDL Cholesterol 77 mg/dL (40-60); HEMOLYSIS < 15 (0-50); LDL Cholesterol Calculated 61 mg/dL (<100); Potassium 4.6 mmol/L (3.4-5.1); Sodium 139 mmol/L (137-145); Triglycerides 86 mg/dL (35-150)
== END ==
LOC: LAB 12:32
PROVIDERS: PCP Family Medicine; Referring Provider Nurse Practitioner; Visit Provider Nurse Practitioner
DX: E78.2 Mixed hyperlipidemia (principal); I10 Essential (primary) hypertension
CPT/HCPCS: 36415; 80048; 80061

== ENCOUNTER → 2024-06-11 14:37 | Outpatient (CLI) | payer MEDICARE, BC, SELFPAY ==
[2024-06-11 15:13] LABS: Add Manual Diff / Slide Review NO; Basophils Absolute Auto 0 /uL (0-100); Basophils Percent Auto 0.3 % (0-2); Eosinophils Absolute Auto 200 /uL (0-450); Eosinophils Percent Auto 2.9 % (2-4); Hematocrit 40.8 % (36-46); Hemoglobin 14.3 g/dL (12.0-16.0); Lymphocytes Absolute Auto 2300 /uL (1100-4500); Lymphocytes Percent Auto 32.3 % (25-40); Mean Corpuscular HGB Conc 35.1 % (30-36); Mean Corpuscular Hemoglobin 32.8 PG (26-34); Mean Corpuscular Volume 93.6 fL (80-100); Monocytes Absolute Auto 700 /uL (0-900); Monocytes Percent Auto 9.5 % (3-14); Neutrophils Absolute Auto 3900 /uL (1500-7000); Platelet Count 171 X10^3/uL (150-400); Red Blood Cell Count 4.36 X10^6/uL (4.0-5.2); Red Cell Distribution Width 13.2 % (11.6-14.8)
[2024-06-11 15:40] LABS: Alanine Aminotransferase 19 IU/L (<35); Albumin 4.4 g/dL (3.5-5.0); Albumin Globulin Ratio 1.5 (1.0-2.8); Alkaline Phosphatase 78 U/L (38-126); Aspartate Aminotransferase 30 IU/L (14-36); BUN Creatinine Ratio 19.8 (6-22); Bilirubin Total 0.8 mg/dL (0.2-1.3); Blood Urea Nitrogen 22 mg/dL (7-17); Calcium 9.5 mg/dL (8.4-10.2); Carbon Dioxide 26 mmol/L (22-32); Chloride 103 mmol/L (98-107); Cholesterol 181 mg/dL (140-199); Estimated Glomerular Filt Rate 50 mL/min (>60); Glucose 96 mg/dL (80-110); HDL Cholesterol 71 mg/dL (40-60); HEMOLYSIS < 15 (0-50); LDL Cholesterol Calculated 89 mg/dL (<100); Potassium 4.4 mmol/L (3.4-5.1); Sodium 137 mmol/L (137-145); Total Protein 7.4 g/dL (6.3-8.2); Triglycerides 105 mg/dL (35-150)
[2024-06-11 15:58] LABS: Free T4, Direct Thyroxine 1.21 ng/dL (0.78-2.19)
[2024-06-11 16:12] LABS: Thyroid Stimulating Hormone 1.57 uIU/mL (0.47-4.68)
== END ==
PROVIDERS: PCP Family Medicine; Referring Provider Family Medicine; Visit Provider Family Medicine
DX: E03.9 Hypothyroidism, unspecified (principal); I10 Essential (primary) hypertension; E78.5 Hyperlipidemia, unspecified
CPT/HCPCS: 36415; 80053; 80061; 84439; 84443; 85025

== ENCOUNTER → 2025-07-11 08:58 | Outpatient (CLI) | payer MEDICARE, BC, SELFPAY ==
[2025-07-11 09:43] LABS: Add Manual Diff / Slide Review NO; Hematocrit 37.7 % (36-46); Hemoglobin 13.2 g/dL (12.0-16.0); Lymphocytes Absolute Auto 1100 /uL (1100-4500); Mean Corpuscular HGB Conc 34.9 % (30-36); Mean Corpuscular Hemoglobin 32.4 PG (26-34); Mean Corpuscular Volume 92.9 fL (80-100); Platelet Count 127 X10^3/uL (150-400)
[2025-07-11 10:05] LABS: HEMOLYSIS < 15 (0-50); Iron 80 ug/dL (37-170)
[2025-07-11 10:11] LABS: Alanine Aminotransferase 20 IU/L (<35); Albumin 4.1 g/dL (3.5-5.0); Albumin Globulin Ratio 1.6 (1.0-2.8); Alkaline Phosphatase 69 U/L (38-126); Blood Urea Nitrogen 18 mg/dL (7-17); Calcium 9.3 mg/dL (8.4-10.2); Carbon Dioxide 28 mmol/L (22-32); Chloride 106 mmol/L (98-107); Estimated Glomerular Filt Rate > 60 mL/min (>60); Globulin 2.6 g/dL (1.7-4.1); Glucose 103 mg/dL (70-99); HEMOLYSIS < 15 (0-50); Potassium 4.3 mmol/L (3.4-5.1); Sodium 142 mmol/L (137-145); Total Protein 6.7 g/dL (6.3-8.2)
[2025-07-11 10:16] LABS: Percent Iron Saturation 24 % (15-50); Total Iron Binding Capacity 336 ug/dL (265-497); Transferrin 294 mg/dL (206-381)
[2025-07-11 10:26] LABS: Free T4, Direct Thyroxine 1.24 ng/dL (0.78-2.19)
[2025-07-11 10:30] LABS: Hemoglobin A1C% w Est Avg Glu 5.0 % (4.0-6.0)
[2025-07-11 10:40] LABS: Thyroid Stimulating Hormone 2.04 uIU/mL (0.47-4.68)
[2025-07-11 10:59] LABS: Vitamin B12 472 pg/mL (239-931)
== END ==
PROVIDERS: PCP Family Medicine; Referring Provider Family Medicine; Visit Provider Family Medicine
DX: I36.1 Nonrheumatic tricuspid (valve) insufficiency (principal); E78.2 Mixed hyperlipidemia; I35.0 Nonrheumatic aortic (valve) stenosis; I10 Essential (primary) hypertension; E03.9 Hypothyroidism, unspecified
CPT/HCPCS: 36415; 80053; 82607; 83036; 83540; 83550; 84439; 84443; 85025

== ENCOUNTER → 2025-08-16 15:26 | Outpatient (CLI) | payer MEDICARE, BC, SELFPAY ==
--- NOTE | 2025-08-16 15:30 | DI.RAD.S_ITS ---
PROCEDURE: XR CHEST 2V INDICATIONS: cough TECHNIQUE: 2 views of the chest were acquired. COMPARISON: None. FINDINGS: Surgical changes and devices: Clips at the left lower neck. Lungs and pleura: Lungs are clear. No pleural effusions or pneumothorax. Mediastinum: Mediastinal contours are normal. Heart size is normal. Bones and chest wall: No suspicious bony abnormalities. Soft tissues appear unremarkable. IMPRESSION: No acute cardiopulmonary abnormality is seen. Dictated by: Reinaldo Sim M.D. on 08/19/2025 at 16:06 Approved by: Reinaldo Sim M.D. on 08/19/2025 at 16:08
== END ==
PROVIDERS: PCP Family Medicine; Referring Provider Family Medicine; Visit Provider Family Medicine
DX: R05.9 Cough, unspecified (principal)
CPT/HCPCS: 71046